=== PATIENT | female | born 1985 | race Caucasian/White ===

== ENCOUNTER → 2019-07-19 | Outpatient (CLI) | payer BC, OTHER ==
--- NOTE | 2019-07-19 10:18 | Diagnostic Imaging Report ---
PROCEDURE: CT sinuses without contrast TECHNIQUE: Multiple contiguous axial images were obtained through the sinuses without the use of intravenous contrast. Coronal and sagittal reformations were then performed. Auto Exposure Controls were utilized during the CT exam to meet ALARA standards for radiation dose reduction. INDICATION: Breathing difficulty. FINDINGS: There is minimal pneumatization of the frontal sinuses. There is opacification of ethmoid air cells bilaterally. There is moderate mucosal thickening in the maxillary sinuses bilaterally. Sphenoid sinuses are clear. The soft tissue thickening in the region of the ostiomeatal complexes bilaterally. There is tortuosity of the nasal septum. There is no trista bullosa. The visualized mastoid air cells are clear. The globes and intraorbital structures are unremarkable. Nasopharyngeal soft tissues are symmetric. IMPRESSION: Bilateral maxillary and ethmoid air cells disease as described. Dictated by: Dictated on workstation # [id number]
== END ==
LOC: RAD 09:06
PROVIDERS: ATTEND Otolaryngology Otolaryngology/Facial Plastic Surgery
DX: J32.9 Chronic sinusitis, unspecified (principal); J34.89 Other specified disorders of nose and nasal sinuses
CPT/HCPCS: 70486

== ENCOUNTER 2019-09-11 05:58 | Outpatient (CLI) | payer OTHER ==
[~2019-09-11] VITALS: Ht 149.9 cm; Wt 53.6 kg
[2019-09-11] MEDS ORDERED: CETI10TA17 PO (14:20)
[2019-09-11] MEDS ORDERED: FLUT9.9S NSEACH (14:20)
== END 2019-09-11 14:25 | disposition home or self-care (01) ==
LOC: PREOP 05:58
PROVIDERS: ATTEND Otolaryngology Otolaryngology/Facial Plastic Surgery
DX: Z01.818 Encounter for other preprocedural examination (principal)

== ENCOUNTER 2019-09-19 05:57 | Day surgery (SDC) | payer OTHER ==
[~2019-09-19] VITALS: Ht 149.9 cm; Wt 53.6 kg
[2019-09-19] VITALS (10 sets, daily range): BP systolic 114–132; BP diastolic 75–91
[~2019-09-19 05:57] MED LIST: CETI10TA17 PO; FLUT9.9S NSEACH
[2019-09-19] MEDS ORDERED: HYDROCORTISONE 100 MG/2 ML (Solu-CORTEF) VIAL ONE (06:41)
[2019-09-19 06:47] LABS: BASOPHILS # (AUTO) 0.1 10^3/uL (0.0-0.1); BASOPHILS % (AUTO) 1 % (0-10); EOSINOPHILS # (AUTO) 0.2 10^3/uL (0.0-0.3); EOSINOPHILS % (AUTO) 4 % (0-10); HEMATOCRIT 36 % (35-52); HEMOGLOBIN 12.1 G/DL (11.5-16.0); LYMPHOCYTES # (AUTO) 2.7 X 10^3 (1.0-4.0); LYMPHOCYTES % (AUTO) 49 % (12-44); MEAN CORPUSCULAR HEMOGLOBIN 30 PG (25-34); MEAN CORPUSCULAR HGB CONC 33 G/DL (32-36); MEAN CORPUSCULAR VOLUME 89 FL (80-99); MEAN PLATELET VOLUME 9.2 FL (7.4-10.4); MONOCYTES # (AUTO) 0.4 X 10^3 (0.0-1.0); MONOCYTES % (AUTO) 7 % (0-12); NEUTROPHILS # (AUTO) 2.2 X 10^3 (1.8-7.8); NEUTROPHILS % (AUTO) 39 % (42-75); PLATELET COUNT 282 10^3/uL (130-400); RED CELL DISTRIBUTION WIDTH 12.3 % (10.0-14.5); WHITE BLOOD COUNT 5.5 10^3/uL (4.3-11.0)
[2019-09-19] MEDS ORDERED: HYDROCORTISONE 100 MG/2 ML (Solu-CORTEF) VIAL IV NR (07:00)
[2019-09-19] MEDS ORDERED: AMPICILLIN/SULBACTAM INJECTION 1.5 GM in NS (IVPB) 100 ML IV NR (07:00)
[2019-09-19] MEDS ORDERED: LIDOCAINE PF 2% 5 ML (XYLOCAINE) VIAL ONE (07:01)
[2019-09-19] MEDS ORDERED: SEVOFLURANE (ULTANE) 15 ML INHAL SOLN ONE ×5 (07:01→09:51)
[2019-09-19] MEDS ORDERED: ONDANSETRON 4 MG/2 ML (SDV) Z0FRAN ONE (07:01)
[2019-09-19] MEDS ORDERED: ROCURONIUM 10 MG/ML 5 ML SYRINGE IV ONE (07:01)
[2019-09-19] MEDS ORDERED: DEXAMETHASONE 10 MG/ML (DECADRON) 1 ML VIAL ONE (07:01)
[2019-09-19] MEDS ORDERED: proPOfol 200 MG/20 ML (DIPRIVAN) VIAL IV ONE (07:01)
[2019-09-19] MEDS ORDERED: MIDAZOLAM 2 MG/2 ML (VERSED) VIAL ONE (07:02)
[2019-09-19] MEDS ORDERED: fentaNYL INJECTION 100 MCG/2 ML AMP ONE (07:02)
[2019-09-19 07:09] LABS: BUN/CREATININE RATIO 24; CALCIUM 8.7 MG/DL (8.5-10.1); CARBON DIOXIDE 24 MMOL/L (21-32); CHLORIDE 108 MMOL/L (98-107); CREATININE SERUM 0.67 MG/DL (0.60-1.30); GFR ESTIMATED > 60; GLUCOSE 81 MG/DL (70-105); POTASSIUM 3.7 MMOL/L (3.6-5.0); SODIUM 141 MMOL/L (135-145)
--- NOTE | 2019-09-19 07:12 | Progress Note-Pre Operative ---
Pre-Operative Progress Note H&P Reviewed The H&P was reviewed, patient examined and no changes noted. Date Seen by Provider: Sep 19, 2019 Time Seen by Provider: 07:00 Date H&P Reviewed: Sep 19, 2019 Time H&P Reviewed: 07:00 Pre-Operative Diagnosis: Bilat Chronic Sinusitis, Deviated SEptum Bilat Hyper of Inf Turbs FABIANA GASTON MD Sep 19, 2019 07:12 POS
[2019-09-19] MEDS ORDERED: BSS 15 ML ONE (07:24)
[2019-09-19] MEDS ORDERED: LIDOCAINE/EPI 1%-1:100,000 (XYLOCAINE) 20ML ONE (07:24)
[2019-09-19] MEDS ORDERED: PHENYLEPHRINE 0.5% NASAL SPR (NEO-SYNEPHRINE) REG ONE (07:25)
[2019-09-19] MEDS ORDERED: COCAINE HCL 4% 2 ML SYR ONE (07:25)
[2019-09-19] MEDS: LACTATED RINGERS 1,000 ML IV PRN ×2 (07:37→09:46)
[2019-09-19] MEDS ORDERED: GLYCOPYRROLATE 0.2 MG/ML (ROBINUL) 2 ML VIAL ONE (09:45)
[2019-09-19] MEDS ORDERED: NEOSTIGMINE 3 MG/3 ML VIAL ONE (09:45)
[2019-09-19] MEDS ORDERED: D5 1/2 NS W/KCL 20 MEQ/L 1,000 ML IV SCH (09:49)
--- NOTE | 2019-09-19 09:49 | Progress Note-Post Operative ---
Post-Operative Progess Note Surgeon (s)/Knowledge Engineer (s) Surgeon FABIANA GASTON MD Knowledge Engineer n/a Pre-Operative Diagnosis Bilat Chronic Sinusitis, Deviated SEptum Bilat Hyper of Inf Turbs Post-Operative Diagnosis same Post-Op Procedure Note Date of Procedure: Sep 19, 2019 Name of Procedure Performed: Bilat ESS, Nasal Septoplasty, Bialt REd of Inf Turbs Description & Findings Description and Findings: n/a Anesthesia Type get Estimated Blood Loss minimal Packing none. Specimen(s) collected/removed Bialt Chronic Sinus Disease FABIANA GASTON MD Sep 19, 2019 09:49 POS
[2019-09-19] MEDS ORDERED: ONDANSETRON 4 MG/2 ML (SDV) Z0FRAN IVP PRN (10:00)
[2019-09-19] MEDS ORDERED: predniSONE 20 MG TAB PO ONE (10:00)
[2019-09-19] MEDS ORDERED: ACETAMINOPHEN 325 MG TABLET PO PRN (10:00)
[2019-09-19] MEDS ORDERED: morphine INJ 10 MG/ML 1ML (SYR OR VIAL) IVP ONE (10:00)
[2019-09-19] MEDS ORDERED: HYDROcodone/APAP 5 MG/325 MG (LORTAB) TAB PO PRN (10:00)
[2019-09-19] MEDS ORDERED: PROMETHAZINE INJ 25 MG/ML (PHENERGAN) AMP IVP PRN (10:00)
[2019-09-19] MEDS ORDERED: morphine INJ 10 MG/ML 1ML (SYR OR VIAL) ONE (10:15)
[2019-09-19] MEDS ORDERED: AMOX-355 PO (10:35)
[2019-09-19] MEDS ORDERED: PRD20T PO (10:35)
[2019-09-19] MEDS ORDERED: HYDR-3812 PO (10:35)
[2019-09-19] MEDS ORDERED: predniSONE 20 MG TAB ONE (11:46)
[2019-09-19] MEDS ORDERED: HYDROcodone/APAP 5 MG/325 MG (LORTAB) TAB ONE (11:47)
--- NOTE | 2019-09-19 13:05 | Anesthesia-General Post-Op ---
General Patient Condition Mental Status/LOC: Same as Preop Cardiovascular: Satisfactory Nausea/Vomiting: Absent Respiratory: Satisfactory Pain: Controlled Complications: Absent Post Op Complications Complications None Follow Up Care/Instructions Patient Instructions None needed. Anesthesia/Patient Condition Patient Condition Patient is doing well, no complaints, stable vital signs, no apparent adverse anesthesia problems. No complications reported per nursing. LIZETTE DEL VALLE CRNA Sep 19, 2019 13:05 POS
== END 2019-09-19 12:20 | disposition home or self-care (01) ==
LOC: SDC 05:57
PROVIDERS: ATTEND Otolaryngology Otolaryngology/Facial Plastic Surgery
DX: J32.9 Chronic sinusitis, unspecified (principal); J34.2 Deviated nasal septum; J34.3 Hypertrophy of nasal turbinates; F41.9 Anxiety disorder, unspecified; Z79.899 Other long term (current) drug therapy
CPT/HCPCS: 36415; 80048; 84703; 85025; 87081